=== PATIENT | male | born 1985 | race Caucasian/White ===

== ENCOUNTER 2021-02-07 19:19 | Emergency (ER) | payer SELFPAY ==
[2021-02-07 19:40] VITALS: BP 151/92; PULSE 85; RESP 19; TEMP 37; O2SAT 99; BMI 49.4
--- NOTE | 2021-02-07 20:25 | HMH.EDUTC ---
[facility] [place] Clinical Impression: Gout attack Qualifiers: Gout site: foot Gout etiology: unspecified cause Laterality: right Qualified Code(s): M10.9 - Gout, unspecified Disposition: Home, Self-Care Condition on Discharge: Good Instructions: DI for Gout, Gout, Indomethacin Additional Instructions: Start oral medication tomorrow for Gout Follow up with your Family Doctor if no improvement or any worsening of symptoms Return if needed Straight to ER if any life threatening symptoms Prescriptions: Indomethacin 50 mg PO TID #15 cap Transmission Status: Pending to [id number] Referrals: Provider,Referral, [Primary Care Provider] - As needed Time of Disposition: 20:42 Medical Decision Making - Papa Inquiry Pt receiving controlled substance: No Papa was queried for this patient: No Vital Signs: 02/07/21 19:40 Temperature 98.6 F Temperature Source Oral Pulse Rate [Right Brachial] 85 Respiratory Rate 19 Blood Pressure [Right Arm] 151/92 H Blood Pressure Mean [Right Arm] 111 Blood Pressure Source [Right Arm] Automatic Cuff Blood Pressure Position [Right Arm] Sitting 02 Sat by Pulse Oximetry 99 Oxygen Delivery Method Room Air - Lab Data Lab results reviewed: Yes: I reviewed the patient's lab results. Lab Results 02/07/21 20:00: Uric Acid 9.0 H [facility] [place] - General Stated complaint: Possible gout in R foot Time Seen by Provider: 02/07/21 20:25 Mode of Arrival: Ambulatory Source of Information: Patient Limitations: No Limitations Description of Symptoms (Recalled from Triage Doc. by RN): PATIENT C/O PAIN, SWELLING, AND WARMTH TO RIGHT FOOT X 2 DAYS HEENT Symptoms (Recalled from RN notes): No Resp Symptoms (Recalled from RN notes): No Skin Symptoms (Recalled from RN notes): No MS Symptoms (Recalled from RN notes): Yes Functional Status (Recalled from RN notes): WNL - History of Present Illness Provider Complaint: Patient states that he has a history of gout States that he eat a lot of red meat on giving and thinks he may be having a gout flare States that he has been having pain, redness and swelling in his right foot - Related Data Previous Rx's Medication Instructions Recorded Indomethacin 50 mg PO TID #15 cap 02/07/21 Allergies Allergy/AdvReac Type Severity Reaction Status Date / Time No Known Allergies Allergy Verified 02/07/21 20:27 - Worker's Comp Is this a Worker's Comp case?: No [facility] History - Hepatitis A Screen Drug use history?: No High risk sexual behaviors?: No History of sexually transmitted infection?: No Currently employed?: No Childcare worker?: No Do you have indoor plumbing?: Yes Do you have electricity?: Yes Attestation statement:: This patient has been screened for Hepatitis A risk factors. I have reviewed the patient's past medical history: Yes ROS Obtained: Yes All systems reviewed & no additional complaints, Yes Systems reviewed as appropriate & no additional complaints - Constitutional Constitutional: Denies body ache, Denies chills, Denies fever(s) - Eyes Eyes: Reports system reviewed and no additional complaints, except as docu - ENT Ears, Nose, Mouth, and Throat: Reports system reviewed and no additional complaints, except as docu - Cardiovascular Cardiovascular: Reports system reviewed and no additional complaints, except as docu - Respiratory Respiratory: Reports system reviewed and no additional complaints, except as docu - Gastrointestinal Gastrointestingal: Reports: system reviewed and no additional complaints, except as docu - Musculoskeletal Musculoskeletal: Reports system reviewed and no additional complaints, except as docu - Allergic/Immunologic Comments: pain, redness and swelling in right foot with history of gout Physical Exam - General General appearance: alert, in no apparent distress - Respiratory Respiratory exam: Present: normal lung sounds bilaterally. Absent: respiratory d
[2021-02-07 20:49] VITALS: BP 151/92; PULSE 85; RESP 19; TEMP 37; O2SAT 99
== END 2021-02-07 20:51 | disposition home or self-care (01) ==
PROVIDERS: Emergency Provider Nurse Practitioner
DX: M10.071 Idiopathic gout, right ankle and foot (principal)
CPT/HCPCS: 84550; 96372; 99202; G0463